=== PATIENT | female | born 1960 | race Caucasian/White ===

== ENCOUNTER 2021-10-10 11:46 | Inpatient (IN) | payer MEDICARE, OTHER ==
[~2021-10-10] VITALS: Ht 157.5 cm; Wt 57.6 kg
[~2021-10-10 11:46] MED LIST: AMOX875T2 PO; ATIV1TAB10 PO; LEXA1TAB PO; MIRT-60 PO; PROP10TA56 PO; SERO1TAB PO; SERO50TA PO; SYNT100T PO; VITA100T14 PO
[2021-10-10] MEDS ORDERED: MAALOX 30 ML SUSP *UDC PO PRN (12:20)
[2021-10-10] MEDS: traZODone 50 MG TAB PO PRN (20:26)
[2021-10-10] MEDS ORDERED: traZODone 50 MG TAB PO ONE (23:40)
[2021-10-11 06:00] VITALS: BP 122/61
[2021-10-11] MEDS ORDERED: HOME MED LIST COMPLETE! XX SCH (09:15)
[2021-10-11] MEDS ORDERED: LORazepam 2 MG TAB PO PRN (09:25)
[2021-10-11] MEDS: LEVOTHYROXINE 100MCG TABLET (0.1MG) PO SCH (10:11)
[2021-10-11] MEDS: MULTIVITAMINS/MINERALS THERAP 1 TAB PO SCH (10:11)
[2021-10-11] MEDS: THIAMINE 100 MG TAB PO SCH ×2 (10:11→20:14)
[2021-10-11] MEDS: FOLIC ACID 1 MG TAB PO SCH (10:12)
[2021-10-11] MEDS: AUGMENTIN 875 MG TAB PO SCH ×2 (12:19→20:14)
[2021-10-11] MEDS: QUEtiapine FUMARATE 50MG TAB PO SCH ×2 (12:19→16:17)
[2021-10-11 16:26] VITALS: BP 136/76
[2021-10-11] MEDS: MIRTAZAPINE 15 MG TAB PO SCH (20:14)
[2021-10-11] MEDS ORDERED: QUEtiapine FUMARATE 200 MG TAB PO SCH (21:00)
[2021-10-12] MEDS: LEVOTHYROXINE 100MCG TABLET (0.1MG) PO SCH (05:34)
[2021-10-12 06:55] VITALS: BP 116/66
[2021-10-12] MEDS: AUGMENTIN 875 MG TAB PO SCH ×2 (08:07→20:02)
[2021-10-12] MEDS: FOLIC ACID 1 MG TAB PO SCH (08:08)
[2021-10-12] MEDS: MULTIVITAMINS/MINERALS THERAP 1 TAB PO SCH (08:08)
[2021-10-12] MEDS: QUEtiapine FUMARATE 50MG TAB PO SCH (08:08)
[2021-10-12] MEDS: THIAMINE 100 MG TAB PO SCH ×2 (08:08→20:02)
[2021-10-12 11:07] VITALS: BP 116/66
[2021-10-12] MEDS: clonazePAM 0.5 MG TAB PO SCH ×2 (12:34→20:02)
[2021-10-12] MEDS: ACETAMINOPHEN TAB 650MG DOSE (2X325MG) PO PRN (16:11)
[2021-10-12 17:51] VITALS: BP 156/85
[2021-10-12 17:56] VITALS: BP 135/67
[2021-10-12] MEDS: MIRTAZAPINE 15 MG TAB PO SCH (20:02)
[2021-10-12] MEDS: traZODone 50 MG TAB PO PRN (21:23)
[2021-10-13] MEDS: LEVOTHYROXINE 100MCG TABLET (0.1MG) PO SCH (05:52)
[2021-10-13 06:54] VITALS: BP 117/58
[2021-10-13] MEDS: AUGMENTIN 875 MG TAB PO SCH ×2 (08:03→20:08)
[2021-10-13] MEDS: FOLIC ACID 1 MG TAB PO SCH (08:04)
[2021-10-13] MEDS: THIAMINE 100 MG TAB PO SCH ×2 (08:04→20:08)
[2021-10-13] MEDS: MULTIVITAMINS/MINERALS THERAP 1 TAB PO SCH (08:04)
[2021-10-13] MEDS: clonazePAM 0.5 MG TAB PO SCH ×2 (08:04→20:08)
[2021-10-13] MEDS: lamoTRIgine 25MG TAB PO SCH ×2 (10:22→20:08)
[2021-10-13 16:12] VITALS: BP 126/72
[2021-10-13] MEDS: ACETAMINOPHEN TAB 650MG DOSE (2X325MG) PO PRN (19:51)
[2021-10-13] MEDS: MIRTAZAPINE 15 MG TAB PO SCH (20:08)
[2021-10-13] MEDS: traZODone 50 MG TAB PO PRN (20:08)
[2021-10-14 01:34] VITALS: BP 105/51
[2021-10-14] MEDS: LEVOTHYROXINE 100MCG TABLET (0.1MG) PO SCH (05:50)
[2021-10-14 06:40] VITALS: BP 120/57
[2021-10-14] MEDS: FOLIC ACID 1 MG TAB PO SCH (07:52)
[2021-10-14] MEDS: lamoTRIgine 25MG TAB PO SCH (07:52)
[2021-10-14] MEDS: clonazePAM 0.5 MG TAB PO SCH (07:52)
[2021-10-14] MEDS: AUGMENTIN 875 MG TAB PO SCH ×2 (07:52→20:13)
[2021-10-14] MEDS: MULTIVITAMINS/MINERALS THERAP 1 TAB PO SCH (07:54)
[2021-10-14] MEDS: OXcarbazepine 300 MG TAB PO SCH ×2 (11:36→20:14)
[2021-10-14 16:08] VITALS: BP 134/79
[2021-10-14] MEDS: traZODone 50 MG TAB PO PRN (20:14)
[2021-10-14] MEDS: MIRTAZAPINE 15 MG TAB PO SCH (20:15)
[2021-10-14] MEDS: PYRIDOXINE 50 MG TAB PO SCH (20:15)
[2021-10-14 21:42] LABS: PERCENT SATURATION 21.6 % (13.2-45.0)
[2021-10-15] MEDS: ACETAMINOPHEN TAB 650MG DOSE (2X325MG) PO PRN (04:25)
[2021-10-15] MEDS: LEVOTHYROXINE 100MCG TABLET (0.1MG) PO SCH (05:47)
[2021-10-15 06:43] VITALS: BP 131/68
[2021-10-15] MEDS: MULTIVITAMINS/MINERALS THERAP 1 TAB PO SCH (08:15)
[2021-10-15] MEDS: FOLIC ACID 1 MG TAB PO SCH (08:15)
[2021-10-15] MEDS: OXcarbazepine 300 MG TAB PO SCH ×2 (08:16→20:02)
[2021-10-15] MEDS: PYRIDOXINE 50 MG TAB PO SCH ×2 (08:16→20:02)
[2021-10-15 16:56] VITALS: BP 135/85
[2021-10-15] MEDS: clonazePAM 0.5 MG TAB PO PRN (18:26)
[2021-10-15] MEDS: traZODone 50 MG TAB PO PRN (20:02)
[2021-10-15] MEDS: MIRTAZAPINE 15 MG TAB PO SCH (20:02)
[2021-10-16] MEDS: LEVOTHYROXINE 100MCG TABLET (0.1MG) PO SCH (05:42)
[2021-10-16 07:01] VITALS: BP 123/63
[2021-10-16 07:29] VITALS: BP 123/63
[2021-10-16] MEDS: OXcarbazepine 300 MG TAB PO SCH ×2 (08:10→20:05)
[2021-10-16] MEDS: clonazePAM 0.5 MG TAB PO PRN (08:10)
[2021-10-16] MEDS: PYRIDOXINE 50 MG TAB PO SCH ×3 (08:11→20:09)
[2021-10-16] MEDS: FOLIC ACID 1 MG TAB PO SCH (08:11)
[2021-10-16] MEDS: MULTIVITAMINS/MINERALS THERAP 1 TAB PO SCH (08:11)
[2021-10-16] MEDS ORDERED: PILL CUTTER 1 EACH XX PRN (09:10)
[2021-10-16 16:13] VITALS: BP 158/84
[2021-10-16] MEDS: ACETAMINOPHEN TAB 650MG DOSE (2X325MG) PO PRN (19:03)
[2021-10-16] MEDS: traZODone 50 MG TAB PO PRN (20:05)
[2021-10-16] MEDS: MIRTAZAPINE 15 MG TAB PO SCH (20:05)
[2021-10-17] MEDS: LEVOTHYROXINE 100MCG TABLET (0.1MG) PO SCH (06:10)
[2021-10-17 06:50] VITALS: BP_SYST 142; BP_SYST 148; BP_DIAS 66; BP_DIAS 71
[2021-10-17] MEDS: FOLIC ACID 1 MG TAB PO SCH (08:14)
[2021-10-17] MEDS: MULTIVITAMINS/MINERALS THERAP 1 TAB PO SCH (08:14)
[2021-10-17] MEDS: PYRIDOXINE 50 MG TAB PO SCH ×2 (08:14→20:04)
[2021-10-17] MEDS ORDERED: OXcarbazepine 300 MG TAB PO SCH (09:00)
[2021-10-17] MEDS: ONDANSETRON 4 MG TAB PO SCH ×3 (12:00→23:17)
[2021-10-17] MEDS: hydrOXYzine 25 MG TAB PO PRN ×2 (13:39→23:19)
[2021-10-17 18:55] VITALS: BP 138/80
[2021-10-17] MEDS: OXcarbazepine 300 MG TAB PO SCH (20:04)
[2021-10-17] MEDS: traZODone 50 MG TAB PO PRN (20:04)
[2021-10-17] MEDS: MIRTAZAPINE 15 MG TAB PO SCH (20:05)
[2021-10-18] MEDS: ONDANSETRON 4 MG TAB PO SCH ×4 (05:48→23:01)
[2021-10-18] MEDS: LEVOTHYROXINE 100MCG TABLET (0.1MG) PO SCH (05:48)
[2021-10-18 06:30] VITALS: BP 143/66
[2021-10-18] MEDS: PYRIDOXINE 50 MG TAB PO SCH ×2 (08:00→19:50)
[2021-10-18] MEDS: OXcarbazepine 300 MG TAB PO SCH ×2 (08:01→19:58)
[2021-10-18] MEDS: MULTIVITAMINS/MINERALS THERAP 1 TAB PO SCH (08:01)
[2021-10-18] MEDS: FOLIC ACID 1 MG TAB PO SCH (08:01)
[2021-10-18] MEDS: GABAPENTIN 100 MG CAP PO SCH ×3 (09:46→19:50)
[2021-10-18] MEDS: ACETAMINOPHEN TAB 650MG DOSE (2X325MG) PO PRN (14:24)
[2021-10-18 16:11] VITALS: BP 141/92
[2021-10-18] MEDS: MIRTAZAPINE 15 MG TAB PO SCH (19:58)
[2021-10-18] MEDS: traZODone 100 MG TAB PO PRN (19:58)
[2021-10-19] MEDS: ONDANSETRON 4 MG TAB PO SCH ×4 (06:00→23:59)
[2021-10-19] MEDS: LEVOTHYROXINE 100MCG TABLET (0.1MG) PO SCH (06:12)
[2021-10-19] MEDS: ACETAMINOPHEN TAB 650MG DOSE (2X325MG) PO PRN ×2 (06:49→18:15)
[2021-10-19 06:52] VITALS: BP 170/94
[2021-10-19] MEDS: PYRIDOXINE 50 MG TAB PO SCH ×2 (08:19→21:00)
[2021-10-19] MEDS: FOLIC ACID 1 MG TAB PO SCH (08:19)
[2021-10-19] MEDS: MULTIVITAMINS/MINERALS THERAP 1 TAB PO SCH (08:19)
[2021-10-19] MEDS: GABAPENTIN 100 MG CAP PO SCH ×4 (08:19→21:00)
[2021-10-19] MEDS: OXcarbazepine 300 MG TAB PO SCH ×2 (08:20→20:14)
[2021-10-19] MEDS: hydrOXYzine 10 MG TAB PO SCH ×2 (14:05→21:00)
[2021-10-19 16:22] VITALS: BP 130/74
[2021-10-19] MEDS: traZODone 100 MG TAB PO PRN (20:12)
[2021-10-19] MEDS: MIRTAZAPINE 15 MG TAB PO SCH (20:13)
[2021-10-20] MEDS: ONDANSETRON 4 MG TAB PO SCH ×4 (05:52→23:27)
[2021-10-20] MEDS: LEVOTHYROXINE 100MCG TABLET (0.1MG) PO SCH (05:52)
[2021-10-20 06:31] VITALS: BP 148/62
[2021-10-20] MEDS: MULTIVITAMINS/MINERALS THERAP 1 TAB PO SCH (08:56)
[2021-10-20] MEDS: PYRIDOXINE 50 MG TAB PO SCH ×2 (08:56→20:11)
[2021-10-20] MEDS: GABAPENTIN 100 MG CAP PO SCH ×3 (08:56→20:10)
[2021-10-20] MEDS: FOLIC ACID 1 MG TAB PO SCH (08:56)
[2021-10-20] MEDS: OXcarbazepine 300 MG TAB PO SCH ×2 (08:57→20:10)
[2021-10-20] MEDS: hydrOXYzine 10 MG TAB PO SCH (08:57)
[2021-10-20] MEDS: BENZTROPINE 0.5 MG TAB PO SCH ×2 (13:40→20:11)
[2021-10-20 16:21] VITALS: BP 149/73
[2021-10-20] MEDS: traZODone 100 MG TAB PO PRN (20:09)
[2021-10-20] MEDS: MIRTAZAPINE 15 MG TAB PO SCH (20:09)
[2021-10-20] MEDS ORDERED: zolPIDEM TARTRATE 5 MG TAB PO ONE (23:00)
[2021-10-21] MEDS: ONDANSETRON 4 MG TAB PO SCH (05:59)
[2021-10-21] MEDS: LEVOTHYROXINE 100MCG TABLET (0.1MG) PO SCH (05:59)
[2021-10-21 06:40] VITALS: BP 164/84
[2021-10-21] MEDS ORDERED: ONDANSETRON 4 MG TAB PO PRN (09:20)
[2021-10-21] MEDS ORDERED: BENZTROPINE 0.5 MG TAB PO PRN (09:20)
[2021-10-21] MEDS ORDERED: traZODone 50 MG TAB PO PRN (09:30)
[2021-10-21] MEDS: FOLIC ACID 1 MG TAB PO SCH (09:41)
[2021-10-21] MEDS: MULTIVITAMINS/MINERALS THERAP 1 TAB PO SCH (09:41)
[2021-10-21] MEDS: PYRIDOXINE 50 MG TAB PO SCH ×2 (09:42→20:20)
[2021-10-21] MEDS: OLANZapine 2.5MG TABLET PO PRN ×2 (12:54→19:08)
[2021-10-21 19:00] VITALS: BP 150/82
[2021-10-21] MEDS: DIVALPROEX 250MG *ER* TAB PO SCH (20:17)
[2021-10-21] MEDS: CLOBETASOL PROPIONATE EMOLLIENT 0.05% CR 60 GM TOP SCH (20:17)
[2021-10-21] MEDS: MIRTAZAPINE 15 MG TAB PO SCH (20:18)
[2021-10-22] MEDS: OLANZapine 2.5MG TABLET PO PRN ×3 (03:58→20:34)
[2021-10-22] MEDS: LEVOTHYROXINE 100MCG TABLET (0.1MG) PO SCH (05:36)
[2021-10-22] MEDS: FOLIC ACID 1 MG TAB PO SCH (09:00)
[2021-10-22] MEDS: MULTIVITAMINS/MINERALS THERAP 1 TAB PO SCH (09:00)
[2021-10-22] MEDS: PYRIDOXINE 50 MG TAB PO SCH ×2 (09:05→20:15)
[2021-10-22] MEDS: DIVALPROEX 250MG *ER* TAB PO SCH ×2 (09:05→20:15)
[2021-10-22] MEDS: CLOBETASOL PROPIONATE EMOLLIENT 0.05% CR 60 GM TOP SCH ×2 (09:08→20:15)
[2021-10-22] MEDS: ACETAMINOPHEN TAB 650MG DOSE (2X325MG) PO PRN ×2 (14:19→21:41)
[2021-10-22 19:09] VITALS: BP 140/80
[2021-10-22] MEDS: MIRTAZAPINE 15 MG TAB PO SCH (20:16)
[2021-10-22] MEDS: traZODone 50 MG TAB PO PRN (20:47)
[2021-10-23] MEDS: LEVOTHYROXINE 100MCG TABLET (0.1MG) PO SCH (05:43)
[2021-10-23 06:23] VITALS: BP 146/70
[2021-10-23] MEDS: FOLIC ACID 1 MG TAB PO SCH (09:00)
[2021-10-23] MEDS: PYRIDOXINE 50 MG TAB PO SCH ×2 (09:00→20:16)
[2021-10-23] MEDS: MULTIVITAMINS/MINERALS THERAP 1 TAB PO SCH (09:00)
[2021-10-23] MEDS: CLOBETASOL PROPIONATE EMOLLIENT 0.05% CR 60 GM TOP SCH ×2 (09:06→20:19)
[2021-10-23] MEDS: DIVALPROEX 250MG *ER* TAB PO SCH ×2 (09:06→20:18)
[2021-10-23] MEDS: LIDOCAINE 5% (LIDODERM) PATCH TD SCH (10:28)
[2021-10-23] MEDS: OLANZapine 2.5MG TABLET PO SCH ×2 (10:28→20:18)
[2021-10-23 17:45] VITALS: BP 132/69
[2021-10-23] MEDS: **NOTE PATIENT COMMENT** MISC XX SCH (19:21)
[2021-10-23] MEDS: MIRTAZAPINE 15 MG TAB PO SCH (20:18)
[2021-10-24] MEDS: LEVOTHYROXINE 100MCG TABLET (0.1MG) PO SCH (05:55)
[2021-10-24 06:44] VITALS: BP 156/82
[2021-10-24] MEDS: FOLIC ACID 1 MG TAB PO SCH (08:39)
[2021-10-24] MEDS: MULTIVITAMINS/MINERALS THERAP 1 TAB PO SCH (08:39)
[2021-10-24] MEDS: OLANZapine 2.5MG TABLET PO SCH ×2 (08:39→20:03)
[2021-10-24] MEDS: DIVALPROEX 250MG *ER* TAB PO SCH ×2 (08:39→20:04)
[2021-10-24] MEDS: PYRIDOXINE 50 MG TAB PO SCH ×2 (08:40→20:04)
[2021-10-24] MEDS: LIDOCAINE 5% (LIDODERM) PATCH TD SCH ×2 (08:40→15:56)
[2021-10-24] MEDS: CLOBETASOL PROPIONATE EMOLLIENT 0.05% CR 60 GM TOP SCH ×2 (08:40→20:02)
[2021-10-24] MEDS: OLANZapine 2.5MG TABLET PO PRN (14:36)
[2021-10-24] MEDS: ACETAMINOPHEN TAB 650MG DOSE (2X325MG) PO PRN (15:20)
[2021-10-24 18:56] VITALS: BP 146/88
[2021-10-24] MEDS: **NOTE PATIENT COMMENT** MISC XX SCH (20:02)
[2021-10-24] MEDS: MIRTAZAPINE 15 MG TAB PO SCH (20:03)
[2021-10-24] MEDS: traZODone 50 MG TAB PO PRN (20:03)
[2021-10-24] MEDS ORDERED: OLANZapine 5 MG TAB PO SCH (21:00)
[2021-10-25] MEDS: LEVOTHYROXINE 100MCG TABLET (0.1MG) PO SCH (05:36)
[2021-10-25 06:30] VITALS: BP 135/61
[2021-10-25] MEDS: LIDOCAINE 5% (LIDODERM) PATCH TD SCH (09:00)
[2021-10-25] MEDS: MULTIVITAMINS/MINERALS THERAP 1 TAB PO SCH (09:00)
[2021-10-25] MEDS: PYRIDOXINE 50 MG TAB PO SCH ×2 (09:00→20:14)
[2021-10-25] MEDS: FOLIC ACID 1 MG TAB PO SCH (09:00)
[2021-10-25] MEDS: OLANZapine 2.5MG TABLET PO SCH (09:24)
[2021-10-25] MEDS: DIVALPROEX 250MG *ER* TAB PO SCH ×2 (09:24→20:14)
[2021-10-25] MEDS: CLOBETASOL PROPIONATE EMOLLIENT 0.05% CR 60 GM TOP SCH ×2 (09:25→20:14)
[2021-10-25] MEDS: ESCITALOPRAM OXALATE 10 MG TAB (LEXAPRO) PO SCH (10:51)
[2021-10-25] MEDS ORDERED: TUBERCULIN PPD 5 UNITS/0.1 ML ID ONE (12:00)
[2021-10-25 18:00] VITALS: BP 127/81
[2021-10-25] MEDS: OLANZapine 5 MG TAB PO SCH (20:13)
[2021-10-25] MEDS: MIRTAZAPINE 15 MG TAB PO SCH (20:13)
[2021-10-25] MEDS: **NOTE PATIENT COMMENT** MISC XX SCH (20:14)
[2021-10-26] MEDS: LEVOTHYROXINE 100MCG TABLET (0.1MG) PO SCH (06:21)
[2021-10-26 07:00] VITALS: BP 147/77
[2021-10-26] MEDS: OLANZapine 5 MG TAB PO SCH ×2 (08:44→20:24)
[2021-10-26] MEDS: ESCITALOPRAM OXALATE 10 MG TAB (LEXAPRO) PO SCH (08:44)
[2021-10-26] MEDS: DIVALPROEX 250MG *ER* TAB PO SCH ×2 (08:44→20:24)
[2021-10-26] MEDS: MULTIVITAMINS/MINERALS THERAP 1 TAB PO SCH (09:00)
[2021-10-26] MEDS: FOLIC ACID 1 MG TAB PO SCH (09:00)
[2021-10-26] MEDS: PYRIDOXINE 50 MG TAB PO SCH ×2 (09:00→20:25)
[2021-10-26] MEDS: LIDOCAINE 5% (LIDODERM) PATCH TD SCH (09:00)
[2021-10-26] MEDS: CLOBETASOL PROPIONATE EMOLLIENT 0.05% CR 60 GM TOP SCH ×2 (09:28→20:26)
[2021-10-26] MEDS: ACETAMINOPHEN TAB 650MG DOSE (2X325MG) PO PRN (18:44)
[2021-10-26] MEDS: MIRTAZAPINE 15 MG TAB PO SCH (20:24)
[2021-10-26] MEDS: **NOTE PATIENT COMMENT** MISC XX SCH (20:27)
[2021-10-27] MEDS: LEVOTHYROXINE 100MCG TABLET (0.1MG) PO SCH (05:38)
[2021-10-27 06:26] VITALS: BP 140/67
[2021-10-27] MEDS: CLOBETASOL PROPIONATE EMOLLIENT 0.05% CR 60 GM TOP SCH ×2 (08:38→20:05)
[2021-10-27] MEDS: DIVALPROEX 250MG *ER* TAB PO SCH ×2 (08:41→20:08)
[2021-10-27] MEDS: FOLIC ACID 1 MG TAB PO SCH (08:41)
[2021-10-27] MEDS: ESCITALOPRAM OXALATE 10 MG TAB (LEXAPRO) PO SCH (08:41)
[2021-10-27] MEDS: MULTIVITAMINS/MINERALS THERAP 1 TAB PO SCH (08:42)
[2021-10-27] MEDS: LIDOCAINE 5% (LIDODERM) PATCH TD SCH (08:42)
[2021-10-27] MEDS: PYRIDOXINE 50 MG TAB PO SCH ×2 (08:42→20:05)
[2021-10-27] MEDS: OLANZapine 5 MG TAB PO SCH ×3 (08:42→20:24)
[2021-10-27] MEDS ORDERED: PPD DOCUMENTATION ENTRY MISC XX ONE (12:00)
[2021-10-27 18:13] VITALS: BP 168/78
[2021-10-27] MEDS: **NOTE PATIENT COMMENT** MISC XX SCH (20:05)
[2021-10-27] MEDS: traZODone 50 MG TAB PO PRN (20:07)
[2021-10-27] MEDS: MIRTAZAPINE 15 MG TAB PO SCH (20:07)
[2021-10-28] MEDS: LEVOTHYROXINE 100MCG TABLET (0.1MG) PO SCH (06:02)
[2021-10-28 06:15] VITALS: BP 146/76
[2021-10-28] MEDS: CLOBETASOL PROPIONATE EMOLLIENT 0.05% CR 60 GM TOP SCH ×2 (09:00→20:04)
[2021-10-28] MEDS: PYRIDOXINE 50 MG TAB PO SCH ×2 (09:00→20:03)
[2021-10-28] MEDS: LIDOCAINE 5% (LIDODERM) PATCH TD SCH (09:00)
[2021-10-28] MEDS: MULTIVITAMINS/MINERALS THERAP 1 TAB PO SCH (09:00)
[2021-10-28] MEDS: FOLIC ACID 1 MG TAB PO SCH (09:00)
[2021-10-28] MEDS: ESCITALOPRAM OXALATE 10 MG TAB (LEXAPRO) PO SCH (09:23)
[2021-10-28] MEDS: DIVALPROEX 250MG *ER* TAB PO SCH (09:23)
[2021-10-28] MEDS: OLANZapine 2.5MG TABLET PO SCH ×2 (09:25→20:04)
[2021-10-28 11:44] LABS: BASO % 0.7 % (0.0-1.0); EOS # 0.1 10^3/uL (0.0-0.5); EOS % 0.9 % (0.0-3.0); HEMOGLOBIN 11.9 g/dl (12.0-15.5); LYMPH # 1.5 10^3/uL (1.5-5.0); LYMPH % 25.1 % (24.0-44.0); MEAN CORPUSCULAR HEMOGLOBIN 30.1 pg (27.0-33.0); MEAN CORPUSCULAR HGB CONC 32.2 g/dl (32.0-36.5); MEAN CORPUSCULAR VOLUME 93.7 fl (80.0-96.0); MONO # 0.4 10^3/uL (0.0-0.8); MONO % 7.1 % (2.0-8.0); NEUTROPHILS # 3.8 10^3/uL (1.5-8.5); NEUTROPHILS % 65.7 % (36.0-66.0); PLATELET COUNT, AUTOMATED 294 10^3/uL (150-450); RED BLOOD COUNT 3.95 10^6/uL (4.00-5.40); WHITE BLOOD COUNT 5.8 10^3/uL (4.0-10.0)
[2021-10-28 16:12] VITALS: BP 159/73
[2021-10-28 16:59] LABS: BLOOD UREA NITROGEN 20 MG/DL (7-18); CALCIUM LEVEL 9.6 MG/DL (8.5-10.1); CARBON DIOXIDE LEVEL 29 MEQ/L (21-32); CHLORIDE LEVEL 107 MEQ/L (98-107); CREATININE FOR GFR 0.75 MG/DL (0.55-1.30); GLOMERULAR FILTRATION RATE > 60.0 (>51); GLUCOSE, FASTING 133 MG/DL (70-100); POTASSIUM SERUM 4.3 MEQ/L (3.5-5.1); SODIUM LEVEL 143 MEQ/L (136-145)
[2021-10-28] MEDS: BENZTROPINE 1 MG TAB PO PRN (20:04)
[2021-10-28] MEDS: DIVALPROEX 500MG *ER* TAB PO SCH (20:05)
[2021-10-28] MEDS: **NOTE PATIENT COMMENT** MISC XX SCH (20:06)
[2021-10-28] MEDS: MIRTAZAPINE 15 MG TAB PO SCH (20:06)
[2021-10-29] MEDS: LEVOTHYROXINE 100MCG TABLET (0.1MG) PO SCH (05:49)
[2021-10-29 06:16] VITALS: BP 131/60
[2021-10-29] MEDS ORDERED: traZODone 50 MG TAB PO PRN (08:30)
[2021-10-29] MEDS ORDERED: traZODone 100 MG TAB PO PRN (08:50)
[2021-10-29] MEDS: MULTIVITAMINS/MINERALS THERAP 1 TAB PO SCH (09:00)
[2021-10-29] MEDS: LIDOCAINE 5% (LIDODERM) PATCH TD SCH (09:00)
[2021-10-29] MEDS: FOLIC ACID 1 MG TAB PO SCH (09:00)
[2021-10-29] MEDS: PYRIDOXINE 50 MG TAB PO SCH ×2 (09:00→20:10)
[2021-10-29] MEDS: CLOBETASOL PROPIONATE EMOLLIENT 0.05% CR 60 GM TOP SCH ×2 (09:00→20:07)
[2021-10-29] MEDS: DIVALPROEX 250MG *ER* TAB PO SCH (09:18)
[2021-10-29] MEDS: valACYclovir HCL 500 MG TAB PO SCH ×2 (09:18→20:08)
[2021-10-29] MEDS: ESCITALOPRAM OXALATE 10 MG TAB (LEXAPRO) PO SCH (09:18)
[2021-10-29] MEDS: OLANZapine 2.5MG TABLET PO SCH ×2 (09:21→20:08)
[2021-10-29 16:10] VITALS: BP 140/80
[2021-10-29] MEDS: DIVALPROEX 500MG *ER* TAB PO SCH (20:07)
[2021-10-29] MEDS: MIRTAZAPINE 15 MG TAB PO SCH (20:08)
[2021-10-29] MEDS: BENZTROPINE 1 MG TAB PO PRN (20:08)
[2021-10-29] MEDS: **NOTE PATIENT COMMENT** MISC XX SCH (20:09)
[2021-10-30] MEDS ORDERED: traZODone 50 MG TAB PO ONE (00:45)
[2021-10-30] MEDS: LEVOTHYROXINE 100MCG TABLET (0.1MG) PO SCH (05:53)
[2021-10-30 06:45] VITALS: BP 153/70
[2021-10-30] MEDS: PYRIDOXINE 50 MG TAB PO SCH ×2 (08:41→20:34)
[2021-10-30] MEDS: FOLIC ACID 1 MG TAB PO SCH (08:41)
[2021-10-30] MEDS: MULTIVITAMINS/MINERALS THERAP 1 TAB PO SCH (08:41)
[2021-10-30] MEDS: CLOBETASOL PROPIONATE EMOLLIENT 0.05% CR 60 GM TOP SCH ×2 (08:42→20:33)
[2021-10-30] MEDS: LIDOCAINE 5% (LIDODERM) PATCH TD SCH (08:42)
[2021-10-30] MEDS: DIVALPROEX 250MG *ER* TAB PO SCH (08:43)
[2021-10-30] MEDS: ESCITALOPRAM OXALATE 10 MG TAB (LEXAPRO) PO SCH (08:43)
[2021-10-30] MEDS: valACYclovir HCL 500 MG TAB PO SCH ×2 (08:43→20:33)
[2021-10-30] MEDS: OLANZapine 2.5MG TABLET PO SCH ×2 (08:45→20:33)
[2021-10-30] MEDS: OLANZapine 2.5MG TABLET PO PRN (15:05)
[2021-10-30 16:20] VITALS: BP 149/74
[2021-10-30] MEDS: **NOTE PATIENT COMMENT** MISC XX SCH (20:29)
[2021-10-30] MEDS: MIRTAZAPINE 15 MG TAB PO SCH (20:33)
[2021-10-30] MEDS: DIVALPROEX 500MG *ER* TAB PO SCH (20:33)
[2021-10-30] MEDS: traZODone 50 MG TAB PO PRN (20:35)
[2021-10-31] MEDS: LEVOTHYROXINE 100MCG TABLET (0.1MG) PO SCH (06:06)
[2021-10-31 06:39] VITALS: BP 130/63
[2021-10-31] MEDS: ESCITALOPRAM OXALATE 10 MG TAB (LEXAPRO) PO SCH (08:43)
[2021-10-31] MEDS: valACYclovir HCL 500 MG TAB PO SCH ×2 (08:43→20:15)
[2021-10-31] MEDS: DIVALPROEX 250MG *ER* TAB PO SCH (08:43)
[2021-10-31] MEDS: MULTIVITAMINS/MINERALS THERAP 1 TAB PO SCH (09:00)
[2021-10-31] MEDS: LIDOCAINE 5% (LIDODERM) PATCH TD SCH (09:00)
[2021-10-31] MEDS: FOLIC ACID 1 MG TAB PO SCH (09:00)
[2021-10-31] MEDS: CLOBETASOL PROPIONATE EMOLLIENT 0.05% CR 60 GM TOP SCH ×2 (09:00→21:00)
[2021-10-31] MEDS: PYRIDOXINE 50 MG TAB PO SCH ×2 (09:00→20:22)
[2021-10-31] MEDS: cloNIDine 0.1MG TABLET PO SCH ×2 (10:04→20:17)
[2021-10-31 18:24] VITALS: BP 139/68
[2021-10-31] MEDS: OLANZapine 2.5MG TABLET PO SCH (20:14)
[2021-10-31] MEDS: DIVALPROEX 500MG *ER* TAB PO SCH (20:15)
[2021-10-31] MEDS: MIRTAZAPINE 15 MG TAB PO SCH (20:17)
[2021-10-31] MEDS: traZODone 50 MG TAB PO PRN (20:18)
[2021-10-31] MEDS: **NOTE PATIENT COMMENT** MISC XX SCH (21:00)
[2021-11-01] MEDS: LEVOTHYROXINE 100MCG TABLET (0.1MG) PO SCH (06:04)
[2021-11-01 06:38] VITALS: BP 114/57
[2021-11-01] MEDS: cloNIDine 0.1MG TABLET PO SCH (08:26)
[2021-11-01] MEDS: LIDOCAINE 5% (LIDODERM) PATCH TD SCH (08:26)
[2021-11-01] MEDS: PYRIDOXINE 50 MG TAB PO SCH ×2 (08:26→20:11)
[2021-11-01] MEDS: FOLIC ACID 1 MG TAB PO SCH (08:26)
[2021-11-01] MEDS: MULTIVITAMINS/MINERALS THERAP 1 TAB PO SCH (08:26)
[2021-11-01] MEDS: valACYclovir HCL 500 MG TAB PO SCH ×2 (08:32→20:06)
[2021-11-01] MEDS: ESCITALOPRAM OXALATE 10 MG TAB (LEXAPRO) PO SCH (08:32)
[2021-11-01] MEDS: DIVALPROEX 250MG *ER* TAB PO SCH ×2 (08:32→20:07)
[2021-11-01] MEDS: CLOBETASOL PROPIONATE EMOLLIENT 0.05% CR 60 GM TOP SCH ×2 (10:38→20:09)
[2021-11-01 16:23] VITALS: BP 135/66
[2021-11-01] MEDS: MIRTAZAPINE 15 MG TAB PO SCH (20:07)
[2021-11-01] MEDS: cloNIDine 0.05MG 1/2 TABLET PO SCH (20:08)
[2021-11-01] MEDS: **NOTE PATIENT COMMENT** MISC XX SCH (20:09)
[2021-11-01] MEDS: traZODone 100 MG TAB PO PRN (20:18)
[2021-11-02] MEDS: LEVOTHYROXINE 100MCG TABLET (0.1MG) PO SCH (05:56)
[2021-11-02 06:12] VITALS: BP 142/65
[2021-11-02] MEDS: MULTIVITAMINS/MINERALS THERAP 1 TAB PO SCH (08:37)
[2021-11-02] MEDS: LIDOCAINE 5% (LIDODERM) PATCH TD SCH (08:37)
[2021-11-02] MEDS: FOLIC ACID 1 MG TAB PO SCH (08:37)
[2021-11-02] MEDS: CLOBETASOL PROPIONATE EMOLLIENT 0.05% CR 60 GM TOP SCH ×2 (08:37→20:28)
[2021-11-02] MEDS: ESCITALOPRAM OXALATE 10 MG TAB (LEXAPRO) PO SCH (08:38)
[2021-11-02] MEDS: valACYclovir HCL 500 MG TAB PO SCH ×2 (08:38→20:22)
[2021-11-02] MEDS: cloNIDine 0.05MG 1/2 TABLET PO SCH ×2 (08:39→20:22)
[2021-11-02] MEDS: PYRIDOXINE 50 MG TAB PO SCH ×2 (09:00→20:28)
[2021-11-02 15:57] VITALS: BP 136/66
[2021-11-02] MEDS: MIRTAZAPINE 15 MG TAB PO SCH (20:22)
[2021-11-02] MEDS: traZODone 100 MG TAB PO PRN (20:23)
[2021-11-02] MEDS: DIVALPROEX 250MG *ER* TAB PO SCH (20:23)
[2021-11-02] MEDS: **NOTE PATIENT COMMENT** MISC XX SCH (20:28)
[2021-11-03] MEDS: LEVOTHYROXINE 100MCG TABLET (0.1MG) PO SCH (05:33)
[2021-11-03 06:31] VITALS: BP 127/69
[2021-11-03] MEDS: FOLIC ACID 1 MG TAB PO SCH (08:54)
[2021-11-03] MEDS: CLOBETASOL PROPIONATE EMOLLIENT 0.05% CR 60 GM TOP SCH ×2 (08:55→20:10)
[2021-11-03] MEDS: PYRIDOXINE 50 MG TAB PO SCH ×2 (08:55→20:10)
[2021-11-03] MEDS: MULTIVITAMINS/MINERALS THERAP 1 TAB PO SCH (08:55)
[2021-11-03] MEDS: LIDOCAINE 5% (LIDODERM) PATCH TD SCH (08:55)
[2021-11-03] MEDS: ESCITALOPRAM OXALATE 10 MG TAB (LEXAPRO) PO SCH (08:57)
[2021-11-03] MEDS: valACYclovir HCL 500 MG TAB PO SCH ×2 (08:57→20:10)
[2021-11-03] MEDS: cloNIDine 0.05MG 1/2 TABLET PO SCH ×2 (09:00→20:09)
[2021-11-03] MEDS: MOM 30ML SUSPENSION UDC PO PRN (13:06)
[2021-11-03 16:31] VITALS: BP 125/73
[2021-11-03] MEDS: traZODone 100 MG TAB PO PRN (20:08)
[2021-11-03] MEDS: DIVALPROEX 500MG *ER* TAB PO SCH (20:09)
[2021-11-03] MEDS: **NOTE PATIENT COMMENT** MISC XX SCH (20:10)
[2021-11-03] MEDS: MIRTAZAPINE 15 MG TAB PO SCH (20:10)
[2021-11-04] MEDS: LEVOTHYROXINE 100MCG TABLET (0.1MG) PO SCH (05:53)
[2021-11-04 07:05] VITALS: BP 127/64
[2021-11-04] MEDS: valACYclovir HCL 500 MG TAB PO SCH ×2 (08:49→20:16)
[2021-11-04] MEDS: ESCITALOPRAM OXALATE 10 MG TAB (LEXAPRO) PO SCH (08:49)
[2021-11-04] MEDS: FOLIC ACID 1 MG TAB PO SCH (08:52)
[2021-11-04] MEDS: MULTIVITAMINS/MINERALS THERAP 1 TAB PO SCH (08:52)
[2021-11-04] MEDS: PYRIDOXINE 50 MG TAB PO SCH ×2 (08:54→20:19)
[2021-11-04] MEDS: CLOBETASOL PROPIONATE EMOLLIENT 0.05% CR 60 GM TOP SCH ×2 (09:00→20:15)
[2021-11-04] MEDS: LIDOCAINE 5% (LIDODERM) PATCH TD SCH (09:00)
[2021-11-04 18:26] VITALS: BP 152/72
[2021-11-04] MEDS: traZODone 100 MG TAB PO PRN (20:16)
[2021-11-04] MEDS: DIVALPROEX 500MG *ER* TAB PO SCH (20:16)
[2021-11-04] MEDS: MIRTAZAPINE 15 MG TAB PO SCH (20:17)
[2021-11-04] MEDS: cloNIDine 0.1MG TABLET PO SCH (20:17)
[2021-11-04] MEDS: **NOTE PATIENT COMMENT** MISC XX SCH (20:19)
[2021-11-05] MEDS: LEVOTHYROXINE 100MCG TABLET (0.1MG) PO SCH (05:50)
[2021-11-05 06:44] VITALS: BP 115/55
[2021-11-05] MEDS: ESCITALOPRAM OXALATE 10 MG TAB (LEXAPRO) PO SCH (08:47)
[2021-11-05] MEDS: cloNIDine 0.05MG 1/2 TABLET PO SCH (08:48)
[2021-11-05] MEDS: PYRIDOXINE 50 MG TAB PO SCH ×2 (08:48→20:10)
[2021-11-05] MEDS: MULTIVITAMINS/MINERALS THERAP 1 TAB PO SCH (08:48)
[2021-11-05] MEDS: FOLIC ACID 1 MG TAB PO SCH (08:48)
[2021-11-05] MEDS: CLOBETASOL PROPIONATE EMOLLIENT 0.05% CR 60 GM TOP SCH ×2 (08:49→20:08)
[2021-11-05 17:59] VITALS: BP 121/67
[2021-11-05] MEDS: traZODone 100 MG TAB PO PRN (20:08)
[2021-11-05] MEDS: MIRTAZAPINE 15 MG TAB PO SCH (20:09)
[2021-11-05] MEDS: DIVALPROEX 500MG *ER* TAB PO SCH (20:09)
[2021-11-05] MEDS: cloNIDine 0.1MG TABLET PO SCH (20:09)
[2021-11-05] MEDS: **NOTE PATIENT COMMENT** MISC XX SCH (20:10)
[2021-11-06] MEDS: LEVOTHYROXINE 100MCG TABLET (0.1MG) PO SCH (05:27)
[2021-11-06 06:45] VITALS: BP 120/72
[2021-11-06] MEDS: ESCITALOPRAM OXALATE 10 MG TAB (LEXAPRO) PO SCH (08:42)
[2021-11-06] MEDS: MULTIVITAMINS/MINERALS THERAP 1 TAB PO SCH (08:43)
[2021-11-06] MEDS: cloNIDine 0.05MG 1/2 TABLET PO SCH (08:43)
[2021-11-06] MEDS: PYRIDOXINE 50 MG TAB PO SCH ×2 (08:43→20:28)
[2021-11-06] MEDS: FOLIC ACID 1 MG TAB PO SCH (08:43)
[2021-11-06] MEDS: CLOBETASOL PROPIONATE EMOLLIENT 0.05% CR 60 GM TOP SCH ×2 (08:43→20:27)
[2021-11-06] MEDS: MOM 30ML SUSPENSION UDC PO PRN (16:18)
[2021-11-06 17:49] VITALS: BP 136/65
[2021-11-06] MEDS: MIRTAZAPINE 15 MG TAB PO SCH (20:27)
[2021-11-06] MEDS: DIVALPROEX 500MG *ER* TAB PO SCH (20:28)
[2021-11-06] MEDS: cloNIDine 0.1MG TABLET PO SCH (20:28)
[2021-11-06] MEDS: traZODone 100 MG TAB PO PRN (20:28)
[2021-11-06] MEDS: **NOTE PATIENT COMMENT** MISC XX SCH (20:29)
[2021-11-07] MEDS: LEVOTHYROXINE 100MCG TABLET (0.1MG) PO SCH (05:48)
[2021-11-07 06:29] VITALS: BP 138/65
[2021-11-07] MEDS: FOLIC ACID 1 MG TAB PO SCH (08:45)
[2021-11-07] MEDS: PYRIDOXINE 50 MG TAB PO SCH ×2 (08:45→20:09)
[2021-11-07] MEDS: MULTIVITAMINS/MINERALS THERAP 1 TAB PO SCH (08:45)
[2021-11-07] MEDS: CLOBETASOL PROPIONATE EMOLLIENT 0.05% CR 60 GM TOP SCH ×2 (08:48→20:09)
[2021-11-07] MEDS: cloNIDine 0.05MG 1/2 TABLET PO SCH (08:49)
[2021-11-07] MEDS: ESCITALOPRAM OXALATE 10 MG TAB (LEXAPRO) PO SCH (09:05)
[2021-11-07 18:19] VITALS: BP 154/87
[2021-11-07] MEDS: cloNIDine 0.2 MG TAB PO SCH (20:08)
[2021-11-07] MEDS: DIVALPROEX 500MG *ER* TAB PO SCH (20:08)
[2021-11-07] MEDS: MIRTAZAPINE 15 MG TAB PO SCH (20:08)
[2021-11-07] MEDS: **NOTE PATIENT COMMENT** MISC XX SCH (20:09)
[2021-11-07] MEDS: traZODone 50 MG TAB PO PRN (20:11)
[2021-11-08] MEDS: LEVOTHYROXINE 100MCG TABLET (0.1MG) PO SCH (06:02)
[2021-11-08 06:14] VITALS: BP 102/59
[2021-11-08] MEDS ORDERED: IBUPROFEN 600MG TAB PO PRN (08:30)
[2021-11-08] MEDS: MULTIVITAMINS/MINERALS THERAP 1 TAB PO SCH (09:00)
[2021-11-08] MEDS: PYRIDOXINE 50 MG TAB PO SCH ×2 (09:00→20:18)
[2021-11-08] MEDS: FOLIC ACID 1 MG TAB PO SCH (09:00)
[2021-11-08] MEDS: CLOBETASOL PROPIONATE EMOLLIENT 0.05% CR 60 GM TOP SCH ×2 (09:33→20:16)
[2021-11-08] MEDS: ESCITALOPRAM OXALATE 10 MG TAB (LEXAPRO) PO SCH (09:33)
[2021-11-08] MEDS: cloNIDine 0.05MG 1/2 TABLET PO SCH (09:36)
[2021-11-08] MEDS: PENCICLOVIR 1% CREAM 5GM TOP SCH ×2 (15:10→20:16)
[2021-11-08 16:42] VITALS: BP 106/54
[2021-11-08] MEDS: DIVALPROEX 500MG *ER* TAB PO SCH (20:17)
[2021-11-08] MEDS: traZODone 50 MG TAB PO PRN (20:17)
[2021-11-08] MEDS: MIRTAZAPINE 15 MG TAB PO SCH (20:17)
[2021-11-08] MEDS: cloNIDine 0.2 MG TAB PO SCH (20:17)
[2021-11-08] MEDS: **NOTE PATIENT COMMENT** MISC XX SCH (20:18)
[2021-11-09] MEDS: LEVOTHYROXINE 100MCG TABLET (0.1MG) PO SCH (05:21)
[2021-11-09 06:32] VITALS: BP 105/55
[2021-11-09] MEDS: ESCITALOPRAM OXALATE 10 MG TAB (LEXAPRO) PO SCH (08:05)
[2021-11-09] MEDS: PYRIDOXINE 50 MG TAB PO SCH ×2 (09:00→20:27)
[2021-11-09] MEDS: PENCICLOVIR 1% CREAM 5GM TOP SCH (09:17)
[2021-11-09] MEDS: cloNIDine 0.05MG 1/2 TABLET PO SCH (09:18)
[2021-11-09] MEDS: CLOBETASOL PROPIONATE EMOLLIENT 0.05% CR 60 GM TOP SCH ×2 (09:58→20:23)
[2021-11-09] MEDS ORDERED: MAGIC MOUTHWASH SUSPENSION BTL SS PRN (10:20)
[2021-11-09] MEDS ORDERED: PENCICLOVIR 1% CREAM 5GM TOP PRN (14:15)
[2021-11-09 18:39] VITALS: BP 103/56
[2021-11-09] MEDS: PENCICLOVIR 1% CREAM 5GM TOP PRN (20:22)
[2021-11-09] MEDS: MIRTAZAPINE 15 MG TAB PO SCH (20:24)
[2021-11-09] MEDS: traZODone 50 MG TAB PO PRN (20:24)
[2021-11-09] MEDS: DIVALPROEX 500MG *ER* TAB PO SCH (20:24)
[2021-11-09] MEDS: **NOTE PATIENT COMMENT** MISC XX SCH (20:26)
[2021-11-09] MEDS: cloNIDine 0.2 MG TAB PO SCH (20:26)
[2021-11-10] MEDS: LEVOTHYROXINE 100MCG TABLET (0.1MG) PO SCH (05:41)
[2021-11-10 07:07] VITALS: BP 150/60
[2021-11-10] MEDS: cloNIDine 0.05MG 1/2 TABLET PO SCH (09:00)
[2021-11-10] MEDS: PYRIDOXINE 50 MG TAB PO SCH ×2 (09:00→20:30)
[2021-11-10] MEDS: CLOBETASOL PROPIONATE EMOLLIENT 0.05% CR 60 GM TOP SCH ×2 (09:00→20:22)
[2021-11-10] MEDS: PENCICLOVIR 1% CREAM 5GM TOP PRN ×2 (09:00→20:29)
[2021-11-10] MEDS: ESCITALOPRAM OXALATE 10 MG TAB (LEXAPRO) PO SCH (09:00)
[2021-11-10] MEDS: OLANZapine 2.5MG TABLET PO PRN (11:33)
[2021-11-10 16:05] VITALS: BP 140/67
[2021-11-10] MEDS: traZODone 50 MG TAB PO PRN (20:22)
[2021-11-10] MEDS: MIRTAZAPINE 15 MG TAB PO SCH (20:23)
[2021-11-10] MEDS: DIVALPROEX 500MG *ER* TAB PO SCH (20:23)
[2021-11-10] MEDS: cloNIDine 0.2 MG TAB PO SCH (20:24)
[2021-11-10] MEDS: **NOTE PATIENT COMMENT** MISC XX SCH (21:00)
[2021-11-11] MEDS: LEVOTHYROXINE 100MCG TABLET (0.1MG) PO SCH (06:06)
[2021-11-11 07:23] VITALS: BP 109/58
[2021-11-11] MEDS: PYRIDOXINE 50 MG TAB PO SCH ×2 (09:00→20:09)
[2021-11-11] MEDS: ESCITALOPRAM OXALATE 10 MG TAB (LEXAPRO) PO SCH (10:01)
[2021-11-11] MEDS: cloNIDine 0.05MG 1/2 TABLET PO SCH (10:01)
[2021-11-11] MEDS: CLOBETASOL PROPIONATE EMOLLIENT 0.05% CR 60 GM TOP SCH ×2 (10:02→20:09)
[2021-11-11 17:21] VITALS: BP 131/65
[2021-11-11] MEDS: DIVALPROEX 500MG *ER* TAB PO SCH (20:07)
[2021-11-11] MEDS: MIRTAZAPINE 15 MG TAB PO SCH (20:08)
[2021-11-11] MEDS: cloNIDine 0.2 MG TAB PO SCH (20:08)
[2021-11-11] MEDS: **NOTE PATIENT COMMENT** MISC XX SCH (20:09)
[2021-11-11] MEDS: traZODone 50 MG TAB PO PRN (20:53)
[2021-11-12] MEDS: LEVOTHYROXINE 100MCG TABLET (0.1MG) PO SCH (05:53)
[2021-11-12 06:05] VITALS: BP 105/53
[2021-11-12] MEDS ORDERED: PENC1CR TOP (08:38)
[2021-11-12] MEDS ORDERED: CLON-412 PO (08:38)
[2021-11-12] MEDS ORDERED: CLON0.2T PO (08:38)
[2021-11-12] MEDS ORDERED: CLOB5CR TOP (08:38)
[2021-11-12] MEDS ORDERED: TRAZ-252 PO (08:38)
[2021-11-12] MEDS ORDERED: MIRT1TAB16 PO (08:38)
[2021-11-12] MEDS ORDERED: LEXA1TAB2 PO (08:38)
[2021-11-12] MEDS ORDERED: DEPA500T2 PO (08:38)
[2021-11-12] MEDS: PYRIDOXINE 50 MG TAB PO SCH (09:00)
[2021-11-12] MEDS: CLOBETASOL PROPIONATE EMOLLIENT 0.05% CR 60 GM TOP SCH (09:00)
[2021-11-12] MEDS: ESCITALOPRAM OXALATE 10 MG TAB (LEXAPRO) PO SCH (09:33)
[2021-11-12 09:34] VITALS: BP 135/78
[2021-11-12] MEDS: cloNIDine 0.05MG 1/2 TABLET PO SCH (09:34)
== END 2021-11-12 12:32 | disposition home or self-care (01) | DRG 885 ==
LOC: UNDOADMIN 13:55 → M PSY 13:55
PROVIDERS: ADMIT Psychiatry & Neurology Psychiatry; ATTEND Student in an Organized Health Care Education/Training Program
DX: F31.60 Bipolar disorder, current episode mixed, unspecified (principal); R45.851 Suicidal ideations; F43.10 Post-traumatic stress disorder, unspecified; F41.0 Panic disorder [episodic paroxysmal anxiety]; E03.9 Hypothyroidism, unspecified; L40.9 Psoriasis, unspecified; F60.89 Other specific personality disorders; Z91.51 Personal history of suicidal behavior; Z79.2 Long term (current) use of antibiotics; Z79.899 Other long term (current) drug therapy; Z88.8 Allergy status to other drugs, medicaments and biological substances; G25.71 Drug induced akathisia